=== PATIENT | male | born 1950 | race Caucasian/White ===

== ENCOUNTER → 2017-08-28 | Outpatient (CLI) | payer MEDICARE ==
[~2017-08-28] MED LIST: AMIT-104 PO; AMIT-106 PO; AMLO-96 PO; AMOX-362 PO; ASPI-715 PO; ATOR-1 PO; ATOR20TA22 PO; ATOR40TA24 PO; ATOR40TA69 PO; ATR80PT PO; BUPR-163 PO; BUPR300T55 PO; BUSP30TA18 PO; CEFU250T11 PO; CEP500 PO; CHOL1CRY4 PO; CLAR-1 PO; CLOP75TA PO; CLOP75TA43 PO; DAR100 PO; DEXL60CA6 PO; ELAVIL; ENA5 PO; ESOM20CA31 PO; FAM20 PO; FAMO20TA28 PO; FEXO30TA36 PO; FISH OIL; HCTZ25 PO; IBU600 PO; IBU800 PO; KRIL1CAP22 PO; KRIL500C2 PO; LEVO750T25 PO; LISI-362 PO; LISI-368 PO; LISI2.5T60 PO; LISINOPRIL PO; METO25TA23 PO; MULT-1335 PO; MULT-865 PO; NIAC500C12 PO; NIAC500C17 PO; NIACIN; OMEG-11 PO; OMEG-24 PO; OMEP-125 PO; OMEP-153 PO; OND4 PO; ONDA-2 PO; ONDA4TAB PO; ONDA4TAB9 PO; ONDA4TAB97 PO; PANT20TA27 PO; PANT40TA65 PO; PHENA200 PO; PIRO10CA62 PO; POLY17PO25 PO; PROBIOTIC PO; PROM12.556 PO; RAN150 PO; RANI-375 PO; RED YEAST RICE; ROS10 PO; ROSU40TA18 PO; TES5T TP; TRA50 PO; UBID100C48 PO; VAL80 PO; VALS1TAB2 PO; WHEA1POW10 PO
== END ==
LOC: LAB 15:14
PROVIDERS: ATTEND Family Medicine
DX: Z01.812 Encounter for preprocedural laboratory examination (principal)
CPT/HCPCS: 36415; 82565

== ENCOUNTER → 2017-09-02 | Outpatient (CLI) | payer MEDICARE ==
[~2017-09-02] MED LIST changes: +IOPAMIDOL 76% 75 ML INFUS BTL 75 ML ONE
--- NOTE | 2017-09-02 13:11 | RADIOLOGY IMAGING REPORT ---
FACILITY: [facility] PATIENT NAME: Woo Yuen : 1950 MR: [id number] V: [id number] EXAM DATE: ORDERING PHYSICIAN: TROY CHRISTIAN TECHNOLOGIST: Location: [facility] [place] Patient: Woo Yuen : 1950 Visit/Account:[id number] Date of Sevice: 09/02/2017 ABDOMEN/PELVIS WITH CONTRAST HISTORY: Abdominal pain, nausea TECHNIQUE: CT abdomen and pelvis with intravenous contrast. Contiguous axial images of the abdomen and pelvis was performed from the lung bases to the symphysis pubis. One of the following dose optimization techniques was utilized in the performance of this exam: Autom ated exposure control; adjustment of the mA and/or kV according to the patient's size; or use of an i terative reconstruction technique. Specific details can be referenced in the facility's radiology C T exam operational policy. CONTRAST: 75 cc of Isovue-370 COMPARISON: 06/16/2011 FINDINGS: Visualized lung bases: Calcified left for lobe granulomas noted. Hepatobiliary: Punctate calcification near the gallbladder neck is noted not clearly within the gall bladder neck and likely benign. Bile ducts are decompressed. No CT evidence for cholecystitis. Spleen: Negative. Adrenals: Negative. Kidneys/: Testicular prosthesis is noted. Pancreas: Negative. GI: Patient is remarkably constipated. No definite bowel obstruction. No obvious obstructing mass or lesion in the rectum. Vessels/spaces/nodes: There is atherosclerosis and ectasia of the aorta and iliac vessels. 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 Bones/soft tissues: Patient has a scoliosis with degenerative changes in the spine. There is spinal stenosis L4-5 due to a disc protrusion and facet arthropathy. IMPRESSION: 1. Significant constipation likely accounting for patient's abdominal pain. Stool is noted to the l evel of the rectum but there is no obvious rectal mass. 2. 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 Report Dictated By: Osman Valencia MD at 09/02/2017 12:58 PM Report E-Signed By: Osman Valencia MD at 09/02/2017 1:07 PM WSN:[email or web address]
== END ==
LOC: CT 01:55
PROVIDERS: ATTEND Internal Medicine Gastroenterology
DX: K59.00 Constipation, unspecified (principal); I25.10 Atherosclerotic heart disease of native coronary artery without angina pectoris; I71.4 Abdominal aortic aneurysm, without rupture
CPT/HCPCS: 74177; Q9967

== ENCOUNTER → 2017-12-22 | Outpatient (CLI) | payer MEDICARE ==
[~2017-12-22] MED LIST changes: +AMLO-111 PO; -AMLO-96 PO; +CALC-521 PO; +CALC11776 PO; +DUL20 PO; -IOPAMIDOL 76% 75 ML INFUS BTL 75 ML ONE
== END ==
LOC: LAB 15:23
PROVIDERS: ATTEND Family Medicine
DX: I10 Essential (primary) hypertension (principal)
CPT/HCPCS: 36415; 82310; 82374; 82435; 82565; 82947; 84132; 84295; 84520

== ENCOUNTER → 2018-04-14 | Outpatient (CLI) | payer MEDICARE ==
[~2018-04-14] MED LIST changes: -AMLO-111 PO; +AMLO-125 PO; +HYOS0.1225 PO; +VENL37.53 PO; +VENL75CA4 PO; +[UNRECOGNIZED DRUG - CODE]
[2018-04-14 16:56] LABS: PLATELET COUNT, AUTOMATED 196 K/uL (150-450)
== END ==
LOC: LAB 16:35
PROVIDERS: ATTEND Family Medicine
DX: I10 Essential (primary) hypertension (principal)
CPT/HCPCS: 36415; 82040; 82247; 82310; 82374; 82435; 82565; 82947; 84075; 84132; 84155; 84295; 84450; 84460; 84520; 85025